=== PATIENT | female | born 1975 | race Caucasian/White ===

== ENCOUNTER 2017-01-01 11:28 | Emergency (ER) | payer BC, OTHER ==
[~2017-01-01] VITALS: Ht 177.8 cm; Wt 92.1 kg
[~2017-01-01 11:28] MED LIST: BUDEPRION XL300 MG; CARISOPRODOL 3350 M1; NEURONTIN600 MG; OMEPRAZOLE20 M2
[2017-01-01] MEDS ORDERED: MELATONIN5 M1 PO (11:40)
[2017-01-01] MEDS ORDERED: CYCLOBENZAPRINE5 MG PO (13:12)
[2017-01-01] MEDS ORDERED: NORCO 5-325 TA1 EACH PO (13:13)
[2017-01-01 13:21] VITALS: BP 106/65
== END 2017-01-01 13:22 | disposition home or self-care (01) ==
LOC: ER 11:28
DX: S16.1XXA Strain of muscle, fascia and tendon at neck level, initial encounter (principal); S39.012A Strain of muscle, fascia and tendon of lower back, initial encounter; L94.9 Localized connective tissue disorder, unspecified; F32.9 Major depressive disorder, single episode, unspecified; Z98.84 Bariatric surgery status; Z88.5 Allergy status to narcotic agent; Z90.89 Acquired absence of other organs; V43.52XA Car driver injured in collision with other type car in traffic accident, initial encounter; Y93.I9 Activity, other involving external motion; Y92.488 Other paved roadways as the place of occurrence of the external cause; Y99.8 Other external cause status